=== PATIENT | female | born 1985 ===

== ENCOUNTER → 2022-09-17 | Outpatient (CLI) | payer SELFPAY ==
[~2022-09-17] MED LIST: HYDACE5 PO; OXYACE5T PO
== END ==
LOC: LAB 14:15 → LAB SHORT 14:15
DX: R30.0 Dysuria (principal); R35.0 Frequency of micturition; R31.9 Hematuria, unspecified; R39.15 Urgency of urination
CPT/HCPCS: 87077; 87086; 87186

== ENCOUNTER → 2024-05-15 | Outpatient (CLI) | payer OTHER ==
[2024-05-15 08:54] LABS: Source, Urine Clean Catch
[2024-05-15 13:04] LABS: Appearance, Urine Turbid (Clear); Bilirubin, Urine Neg (Neg); Blood, Urine 2+ (Neg); Color, Urine Yellow (P-Yellow); Glucose Qualitative, Urine Neg (Neg); Ketones, Urine 1+ (Neg); Leukocyte Esterase, Urine Neg (Neg); Nitrite, Urine Neg (Neg); Protein, Urine 1+ (Neg); Urobilinogen, Urine NORM (Normal)
[2024-05-15 13:24] LABS: Squamous Epithelial Cells Few /hpf (Few); White Blood Cells, Urine 0-2 /hpf (0-5)
[2024-05-15 13:25] LABS: Amorphous Heavy (0-Heavy); Bacteria Few /hpf; Calcium Oxalate Crystals Rare /hpf
== END | disposition home or self-care (01) ==
LOC: LAB SHORT 08:51 → LAB 08:51
PROVIDERS: Student in an Organized Health Care Education/Training Program
DX: R31.21 Asymptomatic microscopic hematuria (principal)
CPT/HCPCS: 81001